=== PATIENT | female | born 1955 | race Hispanic/Latino ===

== ENCOUNTER 2019-08-10 12:07 | Outpatient (CLI) | payer OTHER ==
--- NOTE | 2019-08-10 13:02 | RAD ---
LUMBAR SPINE THREE VIEWS: 08/10/2019 FINDINGS: No fracture, dislocation or disk space narrowing is seen. There is minimal anterolisthesis of L4 on L 5 that appears to be due to facet arthritis. Osteophytes are seen at several lumbar levels and also i n the low thoracic region. The SI joints are symmetrical. The bony pelvis appears intact. IMPRESSION: Mild scattered degenerative changes. POS: [facility]
== END 2019-08-10 12:08 | disposition home or self-care (01) ==
LOC: BURRAD 12:07
PROVIDERS: ATTEND Family Medicine
DX: M54.5 Low back pain (principal); M47.816 Spondylosis without myelopathy or radiculopathy, lumbar region
CPT/HCPCS: 72100